=== PATIENT | female | born 1925 | race Caucasian/White ===

== ENCOUNTER → 2016-03-05 | Outpatient (CLI) | payer MEDICARE, BC ==
--- NOTE | 2016-03-05 16:00 | BD ---
EXAMINATION TYPE: MG DEXA axial skeleton. DATE OF EXAM: 03/05/2016 11:05 AM COMPARISON: NONE CLINICAL HISTORY: M[age] DISORDER OF BONE AND CARTILAGE Height: 61 Weight: 120 FRAX RISK QUESTIONS: Alcohol (3 or more units per day): NO Family History (Parent hip fracture): UNKNOWN Glucocorticoids (More than 3mos): YES (Ex: prednisone, prednisolone, methylprednisolone, dexamethasone, and hydrocortisone). History of Fracture in Adulthood: YES Secondary Osteoporosis: 1. Type 1 Diabetes: NO 2. Hyperthyroidism: NO 3. Menopause before 45: YES 4. Malnutrition: UNAWARE 5. Chronic liver disease: SHE THINKS Rheumatoid Arthritis: NO, OSTEOARTHRITIS Current Tobacco Use: NO RISK FACTORS HISTORY OF: Other Fractures since Age 51: LT KNEE When: AT 81 Family History of Osteoporosis: UNKNOWN Smoke tobacco: NO Drink Alcohol: NO Active: NO, CANNOT, USES CANE, DIFFICULTY WITH BALANCE Diet low in dairy products/other sources of calcium: NO Postmenopausal woman: TOTAL HYST IN HER 30'S Lost more than 2 inches in height since high school: YES Frequent falls: ELDERLY Poor Health: FRAIL, PT 89 YRS OLD Adrenal Insufficiency: NO MEDICATIONS: Prednisone or other steroids: ON AND OFF FOR MANY YRS Additional Medications: ACID REFLUX MEDICATION, BP MEDS X3, FENTANYL PATCH, CALCIUM AND VIT D SHE TH INKS, Additional History: FRAIL, DIGESTION AND ESOPHAGUS TROUBLE EXAM MEASUREMENTS: Bone mineral densitometry was performed using the sliceX System. Bone mineral density as measured about the Lumbar spine is: ----- L1-L4(G/cm2): 1.102 T Score Values are as follows: ----- L1: -1.4 ----- L2: -1.5 ----- L3: -0.4 ----- L4: 0.4 ----- L1-L4: -0.6 Bone mineral density FIRST BONE DENSITY STUDY FOR HER....BASELINE Bone mineral density about the R hip (g/cm2): 0.648 Bone mineral density about the L hip (g/cm2): 0.696 T Score values are as follows: -----R Neck: -2.8 -----L Neck: -2.5 -----R Intertrochanter: -2.8 -----L Intertrochanter: -2.5 Bone mineral density IS THE PATIENTS FIRST BONE DENSITY STUDY FRAX%'S: FOR MAJOR OSTEOPOROTIC FX: 30.0%......FOR HIP FX: 12.7% PROBABILITY OF FX IN 10 YRS TIME IMPRESSION: Osteoporosis (T Score less than -2.5) as noted by T Score values at the There is increased fracture risk and therapy is usually indicated based on age. Re-Screen 1-2 years. NOTE: T-SCORE=SD OF THE YOUNG ADULT MEAN.
== END | disposition home or self-care (01) ==
LOC: RADBDWWP 10:27
PROVIDERS: ATTEND Family Medicine
DX: M81.0 Age-related osteoporosis without current pathological fracture (principal)
CPT/HCPCS: 77080